=== PATIENT | male | born 1960 | race Hispanic/Latino ===

== ENCOUNTER 2023-11-06 08:12 | Day surgery (SDC) | payer OTHER, MEDICARE ==
[2023-11-06] VITALS (11 sets, daily range): BP systolic 97–139; BP diastolic 53–74; PULSE 73–99; RESP 13–16
[~2023-11-06] VITALS: Ht 160 cm; Wt 47.6 kg
[2023-11-06] MEDS ORDERED: DEXTROSE 50%-WATER 50 ML DISP.SYRIN IV ONE (09:15)
[2023-11-06] MEDS ORDERED: 0.9%NACL 1000ML 1,000 ML IV ONE (09:15)
[2023-11-06] MEDS ORDERED: SERT-439 PO (09:22)
[2023-11-06] MEDS ORDERED: TRAM50TA4 PO (09:22)
[2023-11-06] MEDS ORDERED: CLOT15CR23 TP (09:22)
[2023-11-06] MEDS ORDERED: NYST200P MC (09:22)
[2023-11-06] MEDS ORDERED: INSU100V3 SQ (09:22)
[2023-11-06] MEDS ORDERED: DOCU-116 PO (09:22)
[2023-11-06] MEDS ORDERED: GLUC1VIA14 IJ (09:22)
[2023-11-06] MEDS ORDERED: INSU100V52 SQ (09:22)
[2023-11-06] MEDS ORDERED: TAMS-1 PO (09:22)
[2023-11-06] MEDS ORDERED: ACET325C6 PO (09:22)
[2023-11-06] MEDS ORDERED: PROPOFOL 10 MG/ML 20ML VIAL IV ONE (10:21)
== END 2023-11-06 12:56 | disposition home or self-care (01) ==
LOC: ENDO 08:12 → DAH 08:12 → ENDO 12:56
PROVIDERS: ATTEND Internal Medicine Gastroenterology
DX: R19.7 Diarrhea, unspecified (principal); K57.30 Diverticulosis of large intestine without perforation or abscess without bleeding; K29.50 Unspecified chronic gastritis without bleeding; K31.89 Other diseases of stomach and duodenum; A04.72 Enterocolitis due to Clostridium difficile, not specified as recurrent; R14.0 Abdominal distension (gaseous); R19.4 Change in bowel habit; E11.9 Type 2 diabetes mellitus without complications; F32.A Depression, unspecified; F41.9 Anxiety disorder, unspecified; Z72.89 Other problems related to lifestyle; Z79.4 Long term (current) use of insulin; Z83.3 Family history of diabetes mellitus; Z80.9 Family history of malignant neoplasm, unspecified; Z86.73 Personal history of transient ischemic attack (TIA), and cerebral infarction without residual deficits
CPT/HCPCS: 82948 ×3; 43239; 45380; J7030 ×2; J7070; J2704; A4620; A4215 ×2; A4223; A7002; A4222; A4221; A4663; A4606; J3490

== ENCOUNTER 2024-02-18 15:23 | Emergency (ER) | payer OTHER, MEDICARE ==
[~2024-02-18] VITALS: Ht 167.6 cm; Wt 86.2 kg
[~2024-02-18 15:23] MED LIST: ACET-2079 PO; ACET325T51 PO; CETI-89 PO; CLOT15CR23 TP; FERS325 PO; FURO40TA5 PO; METO-391 PO; METO5TAB2 PO; MULT-1203 PO; ONDA-104 PO; SERT-439 PO; TAMS-1 PO; ZINC28.47 TP
[2024-02-18 16:25] LABS: BASOPHILS # (AUTO) 0.04 K/uL (0.00-0.20); BASOPHILS % (AUTO) 0.6 % (0.0-5.0); EOSINOPHILS % (AUTO) 7.8 % (0.0-8.0); HEMATOCRIT 27.6 % (42-54); IMMATURE GRANULOCYTE ABSOLUTE 0.02 K/uL (0-1); LYMPHOCYTES # (AUTO) 1.5 K/uL (1.0-4.8); LYMPHOCYTES % (AUTO) 22.9 % (21.0-51.0); MEAN CORPUSCULAR HEMOGLOBIN 30.6 pg (27.0-33.0); MEAN CORPUSCULAR HGB CONC 32.6 g/dL (32.0-36.0); MEAN CORPUSCULAR VOLUME 93.9 fL (79-99); MONOCYTES # (AUTO) 0.4 K/uL (0.1-1.0); MONOCYTES % (AUTO) 6.1 % (3.0-13.0); NEUTROPHILS % (AUTO) 62.3 % (40.0-77.0); PLATELET COUNT (AUTO) 228 K/uL (130-400); RED BLOOD CELL COUNT(AUTO) 2.94 MIL/uL (4.50-6.20); RED CELL DISTRIBUTION WIDTH 16.2 % (11.0-15.5); WHITE BLOOD COUNT (AUTO) 6.4 K/uL (4.8-10.8)
[2024-02-18 16:43] LABS: CREATININE 1.1 mg/dL (0.5-1.3); POTASSIUM 5.2 mmol/L (3.5-5.1)
[2024-02-18 16:47] LABS: ALBUMIN 2.1 g/dL (3.5-5.0); BILIRUBIN,TOTAL 0.4 mg/dL (0.2-1.0); MAGNESIUM 2.2 mg/dL (1.80-2.40)
[2024-02-18 16:53] LABS: APPEARANCE,URINE CLOUDY (CLEAR); BILIRUBIN,URINE NEGATIVE (NEGATIVE); COLOR,URINE YELLOW (YELLOW); GLUCOSE, URINE (UA) NEGATIVE (NEGATIVE); KETONES,URINE 5 mg/dL (NEGATIVE); LEUKOCYTE ESTERASE ,URINE 500 Leu/uL (NEGATIVE); NITRATE,URINE NEGATIVE (NEGATIVE); OCCULT BLOOD,URINE MODERATE (NEGATIVE); PROTEIN,URINE 600 mg/dL (NEGATIVE); UROBILINOGEN,URINE 0.2 mg/dL (0.2-1.0)
[2024-02-18 16:54] LABS: ADD UA MICROSCOPIC YES
[2024-02-18 17:07] LABS: BACTERIA,URINE MANY /HPF (None Seen); MUCUS,URINE RARE LPF (None Seen); SQUAMOUS EPITHELIAL CELL,UR RARE /HPF (0-2); WBC CLUMP FEW /HPF (0-1); WBC,URINE TNTC /HPF (0-1); YEAST,URINE BUDDING FEW /HPF (None Seen)
[2024-02-18 17:09] LABS: B-TYPE NATRIURETIC PEPTIDE 4530 pg/mL (0-100)
[2024-02-18] MEDS: KETOROLAC 15MG/ML VIAL (15MG/ML) ONE (17:22)
[2024-02-18] MEDS: KETOROLAC 30MG VIAL (30MG/ML) IVP ONE (17:22)
[2024-02-18] MEDS ORDERED: SULF1TAB42 PO (17:30)
[2024-02-18] MEDS: CEFTRIAXONE 1G VIAL IVPB SCH (18:13)
[2024-02-18] MEDS: MORPHINE 2 MG SYG IVP ONE (18:13)
[2024-02-18] MEDS: MORPHINE 2 MG SYG ONE (18:21)
[2024-02-18 19:22] VITALS: BP 152/67; PULSE 90; RESP 18; O2SAT 96
== END 2024-02-18 19:24 ==
LOC: EDH 15:23
DX: N39.0 Urinary tract infection, site not specified (principal); N48.89 Other specified disorders of penis; I10 Essential (primary) hypertension; E11.9 Type 2 diabetes mellitus without complications; F03.93 Unspecified dementia, unspecified severity, with mood disturbance; F17.200 Nicotine dependence, unspecified, uncomplicated; F32.A Depression, unspecified; J90 Pleural effusion, not elsewhere classified; Z79.899 Other long term (current) drug therapy; Z98.890 Other specified postprocedural states
CPT/HCPCS: 99284; 96365; 71045; 96375; 83735; 84484; 80053; 83880; 85025; 87040 ×2; 87077 ×2; 87088; 87186 ×2; 83605; 81001; 36415; 51702; 93005; J2270; J0696; J1885